=== PATIENT | male | born 1975 | race Caucasian/White ===

== ENCOUNTER 2023-05-31 10:15 | Inpatient (IN) | payer OTHER ==
[2023-05-31] MEDS ORDERED: SODIUM CHLORIDE 0.9% 500 ML INFUS.BAG IV ONE (10:29)
[2023-05-31] MEDS ORDERED: NOREPINEPHRINE BITARTRATE 4,000 MCG in DEXTROSE 5%-WATER - 496 ML IV SCH (10:30)
[2023-05-31] MEDS ORDERED: MEROPENEM 1 GM in DEXTROSE 5%-WATER 100 ML IVPB ONE (10:31)
[2023-05-31] MEDS ORDERED: AZTREONAM 1 GM in DEXTROSE 5%-WATER - 50 ML IVPB ONE (10:31)
[2023-05-31] MEDS ORDERED: NOREPINEPHRINE BITARTRATE/D5W 8 MG/250 ML BAG IVPB ONE (10:48)
[2023-05-31] MEDS ORDERED: VANCOMYCIN 1,000 MG in DEXTROSE 5%-WATER - 250 ML IVPB ONE (11:15)
[2023-05-31] MEDS ORDERED: AZITHROMYCIN IVPB 500 MG in DEXTROSE 5%-WATER - 250 ML IVPB ONE (11:15)
[2023-05-31 11:34] LABS: VENOUS BASE EXCESS -8.9 mmol/L (-2-2); VENOUS O2 SATURATION 59.8 % (70-80); VENOUS PCO2 54.2 mmHg (38-52)
[2023-05-31 11:36] LABS: VENOUS PH 7.168 (7.310-7.410)
[2023-05-31 12:00] LABS: HEMATOCRIT 23.2 % (35.4-49); HEMOGLOBIN 7.1 GM/dL (11.7-16.9); MCH 27.5 pg (25.7-33.7); MCHC 30.7 g/dl (32.0-35.9); MEAN CELL VOLUME 89.6 fl (80-96); MEAN PLT VOLUME 7.5 fl (7.5-11.1); PLATELET COUNT 421 10^3/uL (134-434); RBC 2.58 M/mm3 (4.00-5.60); RDW 17.1 % (11.9-15.9)
[2023-05-31 12:04] LABS: WHITE BLOOD COUNT 48.3 K/mm3 (4.0-10.0)
[2023-05-31 12:13] LABS: CHLORIDE 96 mmol/L (98-107); POTASSIUM 4.2 mmol/L (3.5-5.1); SODIUM 129 mmol/L (136-145)
[2023-05-31 12:13] LABS: INR 1.31 (0.83-1.09); PROTHROMBIN TIME (PATIENT) 15.2 SEC (9.7-13.0)
[2023-05-31 12:15] LABS: CALCIUM 8.5 mg/dL (8.5-10.1)
[2023-05-31 12:15] LABS: ACTIVATED PTT 45.4 SECONDS (25.2-36.5)
[2023-05-31 12:16] LABS: ALBUMIN 1.3 g/dl (3.4-5.0); ANION GAP 13 MMOL/L (8-16); CO2 20 mmol/L (21-32); GLUCOSE,RANDOM 133 mg/dL (74-106); LIPASE 266 U/L (73-393); MAGNESIUM 2.3 mg/dL (1.8-2.4)
[2023-05-31] MEDS: NOREPINEPHRINE BITARTRATE 4,000 MCG in DEXTROSE 5%-WATER - 496 ML IV SCH (12:17)
[2023-05-31 12:19] LABS: CREATININE 3.9 mg/dL (0.55-1.3); SGOT/AST 38 U/L (15-37); SGPT/ALT 42 U/L (13-61)
[2023-05-31 12:20] LABS: BILIRUBIN,TOTAL 0.4 mg/dL (0.2-1); TOT PROT 5.7 g/dl (6.4-8.2)
[2023-05-31 12:22] LABS: ALK PHOS 160 U/L (45-117)
[2023-05-31 12:23] LABS: LACTIC ACID 4.1 mmol/L (0.4-2.0)
[2023-05-31] MEDS ORDERED: AZITHROMYCIN IVPB 500 MG/250 ML BAG IVPB ONE (12:27)
[2023-05-31] MEDS ORDERED: AZTREONAM 1 GM VIAL (RESTRICTED TO ID) ONE (12:27)
[2023-05-31] MEDS ORDERED: LACTATED RINGERS SOLUTION 1000 ML INFUS.BAG IV ONE (12:28)
[2023-05-31 12:35] LABS: ANISOCYTOSIS 0; HELMET CELLS 0; HOWELL-JOLLY BODIES 0; MACROCYTOSIS 0; OVALOCYTE 0; ROULEAU 0; SICKELED CELLS 0; TARGET CELLS 0; TEAR DROP CELLS 0; TOXIC GRANULATION 0
[2023-05-31 12:43] LABS: N-TERMINAL BNP 156340.9 pg/ml (5-125)
[2023-05-31] MEDS ORDERED: LACTATED RINGERS SOLUTION 1,000 ML/1,000 ML INFUS.BAG IV STA (12:49)
[2023-05-31] MEDS ORDERED: LACTATED RINGERS SOLUTION 1,000 ML/1,000 ML INFUS.BAG IV SCH (13:00)
[2023-05-31] MEDS ORDERED: VANCOMYCIN 1 GRAM (PRE-DOCKED) 1,000 MG/250 ML BAG IVPB ONE (13:24)
[2023-05-31] MEDS ORDERED: ALBUTEROL SO4 2.5/IPRATROPIUM 0.5 INH SOL 3 ML VIAL.NEB. NEB PRN (14:22)
[2023-05-31] MEDS ORDERED: VASOPRESSIN 40 UNITS/100 ML BAG IV SCH ×3 (14:30→21:15)
[2023-05-31] MEDS ORDERED: ACETAMINOPHEN 1000 MG/100 ML BAG IVPB PRN (15:20)
[2023-05-31] MEDS ORDERED: morphine CARPU-JECT 2 MG/1 ML DISP.SYRIN IVPUSH PRN (15:20)
[2023-05-31] MEDS ORDERED: VANCOMYCIN PREMIX 1.5 GM 1,500 MG/300 ML BAG IVPB ONE (15:30)
[2023-05-31 15:47] VITALS: BMI 34.3
[2023-05-31] MEDS: LACTATED RINGERS SOLUTION 1,000 ML/1,000 ML INFUS.BAG IV SCH (16:16)
[2023-05-31] MEDS: HEPARIN NA (PORCINE) 5,000 UNITS/ML 1ML VIAL SQ SCH ×2 (16:17→21:27)
[2023-05-31] MEDS: AMIODARONE HCL 200 MG TABLET GT SCH ×2 (16:17→21:27)
[2023-05-31] MEDS: INSULIN SLIDING SCALE (NOVOLOG) 1 VIAL SQ SCH ×2 (16:46→21:34)
[2023-05-31] MEDS ORDERED: MIDODRINE HCL 5 MG TABLET PO SCH (18:00)
[2023-05-31] MEDS ORDERED: AZTREONAM 2 GM in DEXTROSE 5%-WATER 100 ML IVPB SCH (18:00)
[2023-05-31] MEDS: PIPERACILLIN/TAZOB 2.25 GM 2.25 GM in DEXTROSE 5%-WATER - 50 ML IVPB SCH (18:01)
[2023-05-31 20:01] LABS: LACTIC ACID 3.5 mmol/L (0.4-2.0)
[2023-05-31] MEDS: FENTANYL NS IVPB 500 MCG/100 ML BAG IVPB SCH (20:09)
[2023-05-31] MEDS ORDERED: ALBUMIN HUMAN 25% 100 ML VIAL IV ONE (20:57)
[2023-05-31] MEDS: MUPIROCIN 2% TOPICAL OINTMENT FOR DECOLONIZATION NS SCH (21:39)
[2023-05-31] MEDS ORDERED: CHLORHEXIDINE GLUCONATE 4% CLEANSER FOR DECOLONIZATION TP SCH (22:00)
[2023-05-31] MEDS ORDERED: VANCOMYCIN PREMIX 1.5 GM 1,500 MG/300 ML BAG IVPB SCH (22:00)
[2023-05-31] MEDS ORDERED: VANCOMYCIN HCL 1,500 MG in DEXTROSE 5%-WATER - 250 ML IVPB SCH (22:00)
[2023-05-31] MEDS ORDERED: NOREPINEPHRINE BITARTRATE 4 MG/4 ML ML IV ONE (22:32)
[2023-06-01 00:01] LABS: BF WBC & OTHER NUCLEATED CELLS 8529 /mm3
[2023-06-01] MEDS: PIPERACILLIN/TAZOB 2.25 GM 2.25 GM in DEXTROSE 5%-WATER - 50 ML IVPB SCH ×2 (02:21→09:05)
[2023-06-01 03:00] LABS: BODY FLUID MONOCYTE 2 %; BODYL FLD EOSINOPHIL 1 %
[2023-06-01 04:19] VITALS: TEMP 97.6
[2023-06-01] MEDS: NOREPINEPHRINE BITARTRATE 4,000 MCG in DEXTROSE 5%-WATER - 496 ML IV SCH ×2 (04:24→06:46)
[2023-06-01] MEDS: FENTANYL NS IVPB 500 MCG/100 ML BAG IVPB SCH (04:25)
[2023-06-01] MEDS: INSULIN SLIDING SCALE (NOVOLOG) 1 VIAL SQ SCH ×2 (06:02→12:21)
[2023-06-01] MEDS: HEPARIN NA (PORCINE) 5,000 UNITS/ML 1ML VIAL SQ SCH (06:02)
[2023-06-01 06:17] VITALS: RESP 19
[2023-06-01] MEDS ORDERED: NOREPINEPHRINE BITARTRATE/D5W 8 MG/250 ML BAG IVPB SCH (07:14)
[2023-06-01] MEDS ORDERED: HYDROCORTISONE SOD SUCCINATE 100 MG/2 ML VIAL IVPUSH SCH (07:30)
[2023-06-01] MEDS: LACTATED RINGERS SOLUTION 1,000 ML/1,000 ML INFUS.BAG IV SCH (07:43)
[2023-06-01 07:46] LABS: HEMATOCRIT 24.8 % (35.4-49); HEMOGLOBIN 7.7 GM/dL (11.7-16.9); MCH 27.8 pg (25.7-33.7); MCHC 30.9 g/dl (32.0-35.9); MEAN CELL VOLUME 90.1 fl (80-96); MEAN PLT VOLUME 7.5 fl (7.5-11.1); PLATELET COUNT 395 10^3/uL (134-434); RBC 2.76 M/mm3 (4.00-5.60)
[2023-06-01 07:48] LABS: WHITE BLOOD COUNT 46.4 K/mm3 (4.0-10.0)
[2023-06-01 07:54] VITALS: PULSE 103
[2023-06-01 08:00] LABS: CHLORIDE 93 mmol/L (98-107); POTASSIUM 4.2 mmol/L (3.5-5.1); SODIUM 125 mmol/L (136-145)
[2023-06-01 08:08] LABS: ANION GAP 12 MMOL/L (8-16); CALCIUM 8.2 mg/dL (8.5-10.1); CO2 21 mmol/L (21-32); GLUCOSE,RANDOM 156 mg/dL (74-106); MAGNESIUM 2.2 mg/dL (1.8-2.4)
[2023-06-01 08:11] LABS: CREATININE 3.8 mg/dL (0.55-1.3); PHOSPHOROUS 3.7 mg/dL (2.5-4.9); SGOT/AST 33 U/L (15-37); SGPT/ALT 33 U/L (13-61)
[2023-06-01 08:13] LABS: BILIRUBIN,TOTAL 0.6 mg/dL (0.2-1); TOT PROT 5.6 g/dl (6.4-8.2)
[2023-06-01 08:14] LABS: ALK PHOS 134 U/L (45-117)
[2023-06-01 08:17] LABS: BLOOD UREA NITROGEN 137.3 mg/dL (7-18)
[2023-06-01] MEDS ORDERED: PHENYLEPHRINE NS PREMIX 50,000 MCG/500 ML BAG CVP SCH (08:30)
[2023-06-01] MEDS: FLUDROCORTISONE ACETATE 0.1 MG TABLET (FP) PO SCH ×2 (08:58→09:18)
[2023-06-01] MEDS: MUPIROCIN 2% TOPICAL OINTMENT FOR DECOLONIZATION NS SCH (09:06)
[2023-06-01] MEDS: AMIODARONE HCL 200 MG TABLET GT SCH (09:06)
[2023-06-01 09:23] LABS: ANISOCYTOSIS 0; HELMET CELLS 0; HOWELL-JOLLY BODIES 0; MACROCYTOSIS 0; OVALOCYTE 0; ROULEAU 0; SICKELED CELLS 0; TARGET CELLS 0; TEAR DROP CELLS 0; TOXIC GRANULATION 0
[2023-06-01] MEDS ORDERED: VASOPRESSIN 40 UNITS/100 ML BAG IV SCH (09:29)
[2023-06-01] MEDS ORDERED: MIDODRINE HCL 5 MG TABLET PO SCH (10:00)
[2023-06-01] MEDS ORDERED: DOXYCYCLINE INJECTION 100 MG in DEXTROSE 5%-WATER 100 ML IVPB SCH (10:00)
[2023-06-01] MEDS ORDERED: SCOPOLAMINE HYDROBROMIDE 1 PATCH PATCH.TD72 TP SCH (10:00)
[2023-06-01] MEDS ORDERED: PANTOPRAZOLE SODIUM 40 MG VIAL IVPUSH SCH (10:00)
[2023-06-01 10:26] VITALS: BP 81/54
[2023-06-01] MEDS ORDERED: MORPHINE SULFATE/0.9% NACL/PF 100 MG/100 ML BAG IVPB SCH (11:00)
== END 2023-06-01 11:36 | disposition expired | DRG 871 ==
LOC: JER 10:15 → JERBED 12:17 → JICU 15:12
PROVIDERS: ADMIT Internal Medicine Pulmonary Disease; ATTEND Internal Medicine Pulmonary Disease
PROC: 0W9B3ZZ Drainage of Left Pleural Cavity, Percutaneous Approach (ICD-10-PCS; principal; 2023-05-31)
PROC: 5A1935Z Respiratory Ventilation, Less than 24 Consecutive Hours (ICD-10-PCS; 2023-05-31)
PROC: 05HM33Z Insertion of Infusion Device into Right Internal Jugular Vein, Percutaneous Approach (ICD-10-PCS; 2023-05-31)
DX: A41.89 Other specified sepsis (principal); G93.41 Metabolic encephalopathy; J18.9 Pneumonia, unspecified organism; L89.893 Pressure ulcer of other site, stage 3; L89.523 Pressure ulcer of left ankle, stage 3; R65.21 Severe sepsis with septic shock; G93.1 Anoxic brain damage, not elsewhere classified; J90 Pleural effusion, not elsewhere classified; N17.9 Acute kidney failure, unspecified; J96.10 Chronic respiratory failure, unspecified whether with hypoxia or hypercapnia; I48.0 Paroxysmal atrial fibrillation; J44.9 Chronic obstructive pulmonary disease, unspecified; F41.9 Anxiety disorder, unspecified; L89.150 Pressure ulcer of sacral region, unstageable; L08.89 Other specified local infections of the skin and subcutaneous tissue; R00.0 Tachycardia, unspecified; D64.9 Anemia, unspecified; T17.390A Other foreign object in larynx causing asphyxiation, initial encounter; K59.00 Constipation, unspecified; D72.829 Elevated white blood cell count, unspecified; E11.22 Type 2 diabetes mellitus with diabetic chronic kidney disease; N18.9 Chronic kidney disease, unspecified; L89.620 Pressure ulcer of left heel, unstageable; L89.320 Pressure ulcer of left buttock, unstageable; L89.142 Pressure ulcer of left lower back, stage 2; L89.210 Pressure ulcer of right hip, unstageable; Z93.3 Colostomy status; Z93.0 Tracheostomy status
CPT/HCPCS: 0241U-QW; 36415; 36430; 71045-TC-FY; 76604-TC; 76775-TC; 76856-TC; 80053; 82553; 82803; 82945; 82962; 83605; 83615; 83690; 83735; 83880; 83986; 84100; 84484; 85025; 85610; 85730; 86140; 86850; 86900; 86901; 86922; 87040; 87070; 87075; 87081; 87186; 87205; 93005; 93010; 94002; 99291; J1644; J3490; P9058